=== PATIENT | female | born 1995 | race Two or more races ===

== ENCOUNTER → 2023-06-20 | Emergency (ER) | payer OTHER ==
[~2023-06-20] VITALS: Ht 154.9 cm; Wt 74.8 kg
[~2023-06-20] MED LIST: AMOX1TAB5 PO; MUPIROCIN15 GM TOP
== END | disposition home or self-care (01) ==
LOC: ER 21:16
DX: L02.91 Cutaneous abscess, unspecified (principal); T88.9XXA Complication of surgical and medical care, unspecified, initial encounter